=== PATIENT | female | born 1995 | race Caucasian/White ===

== ENCOUNTER 2017-11-23 08:07 | Emergency (ER) | payer OTHER | END 2017-11-23 09:33 | disposition home or self-care (01) | LOC: M ED 08:07 | DX: R42 Dizziness and giddiness (principal); R11.0 Nausea; R51 Headache; T59.891A Toxic effect of other specified gases, fumes and vapors, accidental (unintentional), initial encounter; X58.XXXA Exposure to other specified factors, initial encounter; Y92.098 Other place in other non-institutional residence as the place of occurrence of the external cause; J45.909 Unspecified asthma, uncomplicated; Z88.0 Allergy status to penicillin; Z91.030 Bee allergy status; Z79.3 Long term (current) use of hormonal contraceptives | CPT/HCPCS: 99283 ==

== ENCOUNTER → 2018-12-12 | Outpatient (REF) | payer OTHER ==
[~2018-12-12] MED LIST: PROAAER10 INH; TRIN1TAB2 PO
[2018-12-12 12:24] LABS: HEMATOCRIT 39.9 % (36.0-47.0); HEMOGLOBIN 13.4 g/dl (12.0-15.5); MEAN CORPUSCULAR HEMOGLOBIN 31.4 pg (27.0-33.0); MEAN CORPUSCULAR HGB CONC 33.6 g/dl (32.0-36.5); MEAN CORPUSCULAR VOLUME 93.4 fl (80.0-96.0); PLATELET COUNT, AUTOMATED 239 10^3/uL (150-450); RED BLOOD COUNT 4.27 10^6/uL (4.00-5.40); WHITE BLOOD COUNT 8.6 10^3/uL (4.0-10.0)
[2018-12-12 13:18] LABS: HCG, SERUM QUANTITATIVE 101098 MIU/ML
[2018-12-13 09:25] LABS: RUBELLA IgG QUALITATIVE IMMUNE (IMMUNE)
[2018-12-13 09:56] LABS: HEPATITIS C VIRUS ABY INDEX 0.1 INDEX (<0.8); HIV 1&2 SCREEN CENTAUR NEGATIVE (NEGATIVE)
== END ==
LOC: M LAB REF 11:57
PROVIDERS: ATTEND Nurse Practitioner Women's Health
DX: Z32.01 Encounter for pregnancy test, result positive (principal); O36.80X0 Pregnancy with inconclusive fetal viability, not applicable or unspecified; Z3A.00 Weeks of gestation of pregnancy not specified

== ENCOUNTER 2019-02-02 22:17 | Emergency (ER) | payer OTHER ==
[~2019-02-02] VITALS: Ht 167.6 cm; Wt 53.3 kg
[2019-02-02 22:44] LABS: BASO # 0.1 10^3/uL (0.0-0.2); BASO % 0.6 % (0.0-1.0); EOS # 0.7 10^3/uL (0.0-0.5); EOS % 4.2 % (0.0-3.0); HEMATOCRIT 37.1 % (36.0-47.0); HEMOGLOBIN 12.7 g/dl (12.0-15.5); LYMPH % 18.2 % (24.0-44.0); MEAN CORPUSCULAR HEMOGLOBIN 30.7 pg (27.0-33.0); MEAN CORPUSCULAR HGB CONC 34.2 g/dl (32.0-36.5); MEAN CORPUSCULAR VOLUME 89.6 fl (80.0-96.0); MONO # 1.5 10^3/uL (0.0-0.8); MONO % 8.7 % (0.0-5.0); NEUTROPHILS # 11.3 10^3/uL (1.5-8.5); NEUTROPHILS % 67.5 % (36.0-66.0); PLATELET COUNT, AUTOMATED 253 10^3/uL (150-450); RED BLOOD COUNT 4.14 10^6/uL (4.00-5.40); WHITE BLOOD COUNT 16.7 10^3/uL (4.0-10.0)
[2019-02-02] MEDS ORDERED: ACETAMINOPHEN 325 MG TAB PO ONE (22:45)
[2019-02-02] MEDS ORDERED: ONDANSETRON 4MG/2ML VIAL (J2405) IV ONE (22:45)
[2019-02-02] MEDS ORDERED: NS 1,000 ML IV ONE (22:45)
[2019-02-02 23:13] LABS: ALBUMIN 3.3 GM/DL (3.2-5.2); ALT/SGPT 21 U/L (12-78); BILIRUBIN,DIRECT < 0.1 MG/DL (0.0-0.2); BILIRUBIN,TOTAL 0.2 MG/DL (0.2-1.0); BLOOD UREA NITROGEN 17 MG/DL (7-18); CALCIUM LEVEL 8.6 MG/DL (8.5-10.1); CARBON DIOXIDE LEVEL 24 MEQ/L (21-32); CHLORIDE LEVEL 103 MEQ/L (98-107); CREATININE FOR GFR 0.74 MG/DL (0.55-1.30); GLOMERULAR FILTRATION RATE > 60.0 (>60); GLUCOSE, FASTING 121 MG/DL (70-100); LIPASE 118 U/L (73-393); POTASSIUM SERUM 3.3 MEQ/L (3.5-5.1); SODIUM LEVEL 136 MEQ/L (136-145); TOTAL PROTEIN 7.2 GM/DL (6.4-8.2)
--- NOTE | 2019-02-02 23:27 | REPVR ---
PROCEDURE INFORMATION: Exam: US Abdomen Limited, Right Upper Quadrant Exam date and time: 02/02/2019 11:12 PM Clinical history: 24 years old, female; Abdominal pain; Epigastric; ; Additional info: Abdominal pain, umbilical, tender throughout, 15 wks TECHNIQUE: Imaging protocol: Real-time ultrasound of the abdomen with image documentation. Examination was focused on the right upper quadrant. COMPARISON: US OB 02/02/2019 11:02 PM FINDINGS: Liver: Normal appearing liver. Gallbladder: Normal appearing gallbladder. The gallbladder wall measures less than 2 mm. Common bile duct: Common bile duct measures 4 mm and normal in size. Pancreas: Normal appearing pancreas. Right kidney: Right kidney measures 10 CM in length and there is no evidence of hydronephrosis. Inferior vena cava: Normal-appearing inferior vena cava. IMPRESSION: Normal appearing ultrasound of the right upper quadrant. Electronically signed by: Nasim Cates On 02/02/2019 23:27:43 PM
--- NOTE | 2019-02-02 23:36 | REPVR ---
PROCEDURE INFORMATION: Exam: US First Trimester, Transabdominal Exam date and time: 02/02/2019 11:12 PM Clinical history: 24 years old, female; complicated by abdominal or pelvic pain; Generalized abdominal pain; Second trimester; Gestational age or lmp: 15w 6d; ; Additional info: Abdominal pain, umbilical, tender throughout, 15 wks TECHNIQUE: Imaging protocol: Real-time transabdominal obstetrical ultrasound of the maternal pelvis and a first trimester , less than 14 weeks 0 days, with image documentation. COMPARISON: No relevant prior studies available. FINDINGS: GESTATION: Gestation: Single intrauterine gestation Heart rate: heart rate is 153 beats per minute. Placenta: Anterior placenta without evidence of abruption or previa. Amniotic fluid: Normal amniotic fluid volume. BIOMETRY: Estimated gestational age: Gestational age based on ultrasound and LMP is 15 weeks 5-6 days. Estimated weight: Estimated weight 141 g (54th percentile). Biparietal diameter: BPD 3.3 cm Head circumference: Head circumference 11.8 cm Abdominal circumference: Abdominal circumference 10 cm Femur length: Femur length 2 cm. MATERNAL: Uterus: Unremarkable. Cervix: Unremarkable. Right adnexa: Unremarkable. Left adnexa: Unremarkable. Intraperitoneal: No intraperitoneal free fluid. IMPRESSION: Unremarkable scan at 15 weeks 5-6 days as described above. Detailed structural survey can be performed between 19-20 weeks if clinically desired. Electronically signed by: Jacob Cruz On 02/02/2019 23:35:30 PM
[2019-02-03] MEDS ORDERED: raNITIdine SYRUP 150 MG/10 ML UDC PO STA (00:32)
[2019-02-03] MEDS ORDERED: ZANT150T40 PO (00:57)
[2019-02-03] MEDS ORDERED: ONDA4TAB6 PO (00:57)
[2019-02-03 01:08] VITALS: BP 111/66
== END 2019-02-03 01:14 | disposition home or self-care (01) ==
LOC: M ED 22:17
DX: O99.112 Other diseases of the blood and blood-forming organs and certain disorders involving the immune mechanism complicating pregnancy, second trimester (principal); D72.829 Elevated white blood cell count, unspecified; O21.9 Vomiting of pregnancy, unspecified; O99.512 Diseases of the respiratory system complicating pregnancy, second trimester; J45.909 Unspecified asthma, uncomplicated; Z3A.15 15 weeks gestation of pregnancy; Z88.0 Allergy status to penicillin; Z91.030 Bee allergy status
CPT/HCPCS: 36415; 76705; 76811; 80048; 80076; 81001; 83690; 85025; 96361; 96374; 99284; J2405

== ENCOUNTER → 2019-04-30 | Outpatient (CLI) | payer OTHER ==
[~2019-04-30] MED LIST changes: +ONDA4TAB6 PO; +ZANT150T40 PO
[2019-04-30 17:16] LABS: HEMATOCRIT 36.9 % (36.0-47.0); HEMOGLOBIN 12.1 g/dl (12.0-15.5); MEAN CORPUSCULAR HEMOGLOBIN 31.6 pg (27.0-33.0); MEAN CORPUSCULAR HGB CONC 32.8 g/dl (32.0-36.5); MEAN CORPUSCULAR VOLUME 96.3 fl (80.0-96.0); PLATELET COUNT, AUTOMATED 177 10^3/uL (150-450); RED BLOOD COUNT 3.83 10^6/uL (4.00-5.40); WHITE BLOOD COUNT 9.3 10^3/uL (4.0-10.0)
== END ==
LOC: M LAB 15:29
PROVIDERS: ATTEND Obstetrics & Gynecology
DX: Z34.02 Encounter for supervision of normal first pregnancy, second trimester (principal)

== ENCOUNTER → 2019-06-19 | Outpatient (REF) | payer OTHER | LOC: M LAB REF 17:43 | PROVIDERS: ATTEND Obstetrics & Gynecology | DX: Z34.03 Encounter for supervision of normal first pregnancy, third trimester (principal) ==

== ENCOUNTER 2019-07-28 02:24 | Inpatient (IN) | payer OTHER ==
[~2019-07-28] VITALS: Ht 167.6 cm; Wt 64.7 kg
[2019-07-28] VITALS (47 sets, daily range): BP systolic 93–141; BP diastolic 51–94
[2019-07-28] MEDS ORDERED: LACTATED RINGER'S 1000 ML IV STA (02:56)
[2019-07-28] MEDS ORDERED: LR 1,000 ML IV SCH ×2 (02:56→13:15)
--- NOTE | 2019-07-28 03:18 | HPEPDOC ---
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: No pertinent history Past Medical History Medical History asthma, seasonal allergies Surgical History: Appendectomy, Tonsilectomy Family History Significant Family History: Noncontributory Social History Marital Status: Family situation: Spouse/partner home Psychosocial History: No pertinent psych hx * Smoker: non-smoker Alcohol: Denies Drugs: denies Abuse Violence Screening Have you been hit/kicked/slapp: No Have you been sexually assault: No Imunizations Influenza Status: current Allergies Coded Allergies: bee venom protein (honey bee) (Verified Allergy, Severe, anaphylaxis, 02/02/19) Penicillins (Verified Allergy, Intermediate, rash, 02/02/19) Medications Scheduled Ranitidine Hcl (Zantac) 150 Mg Tablet, 1 TAB PO BID Scheduled PRN Albuterol Sulfate (Proair Hfa) 108 Mcg/Act Aer, 2 PUFF INH Q4-6HP PRN for wheezing Ondansetron (Ondansetron Odt) 4 Mg Tab.rapdis, 1 TAB PO Q6-8HP PRN for nausea/vomiting Physical Examination Physical Examination GENERAL: Alert and oriented times three. BREAST: . ABDOMEN: Gravid and non-tender to touch. FETUS: Is vertex (VTX) by sterile vaginal examination (SVE), fetus is vertex (VTX) by David. HEART RATE: Regular rate and rhythm. LUNGS: Clear to auscultation (CTA). EXTREMITIES: No edema. No clonus. Deep tendon reflexes (DTRs) + 2. Laboratory Data [facility] Laboratory Tests 2 07/28/19 02:55: Serology Scanned Report Hepatitis B Testing Pertinent Laboratoy Data Blood Type: O+ RBC Antibody Screen: Negative HIV: Negative Hepatitis B: Negative Hepatitis C: Negative Rapid Plasma Reagin: Nonreactive Rubella: Immune Chlamydia/Gonorrhea: Negative Group B Streptococcus: Negative Quad Screen Test: Declined Glucose Tolerance Test: 134 Anatomy Ultrasound Ultrasound Date: Mar 06, 2019 Placenta Location: Posterior Normal Anatomy: Yes Placenta Previa: No Estimated Weight (grams): 318 Other Ultrasounds 12/12/18 dating 9w3d, CLAUDIO 07/24/2019 03/23/19 f/u anatomy WNL. Steroid Therapy Steroid Therapy: No Vaginal Examination Dilation: 2cm (-3) Effacement: 80% Station: -1 Cervical Consistency: Soft Cervical Position: Posterior Presentation: Cephalic presentation Assessment Heart Rate (FHR): 145 Variability: Moderate Accelerations: Positive Decelerations: None Tocometer Contractions: Yes Frequency: every 1-5 min. Strength: palpated as mild Assessment/Plan Assessment Rosa Isela is a 24-year-old (G)1 para (P)0-0-0-0 at 40+6 weeks by 9-week ultrasound. Presents to Labor and Delivery (L&D) with complaints of regular painful contractions. Denies LOF, bleeding. Reports good activity. 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 Diet: clear liquids. Group B Streptococcus (GBS) negative. Labs and intravenous (IV) per unit protocol. Counseled on Pitocin and induction of labor (IOL). Lactated Ringers (LR): Bolus 500 mL, then at 125 mL/hr. Considering epidural Anticipate normal spontaneous delivery () C-S as appropriate. Fidelina Weathers CNM July 28, 2019 03:18
[2019-07-28 03:21] LABS: HEMOGLOBIN 13.3 g/dl (12.0-15.5); MEAN CORPUSCULAR HEMOGLOBIN 32.5 pg (27.0-33.0); MEAN CORPUSCULAR VOLUME 92.9 fl (80.0-96.0); PLATELET COUNT, AUTOMATED 183 10^3/uL (150-450); RED BLOOD COUNT 4.09 10^6/uL (4.00-5.40); WHITE BLOOD COUNT 15.6 10^3/uL (4.0-10.0)
[2019-07-28] MEDS ORDERED: FENTANYL 2MCG/ML ROPIVACAINE 0.2% IN 0.9% NACL 100ML IVBAG As Ordered ONE (06:38)
[2019-07-28] MEDS ORDERED: FENTANYL/ROPIVACAINE/NACL BAG 100 ML EPIDURAL SCH (08:30)
[2019-07-28] MEDS ORDERED: EPIDURAL/PCA KEYS XX PRN (08:30)
[2019-07-28] MEDS ORDERED: ONDANSETRON 4MG/2ML VIAL IV PRN ×2 (08:30→12:45)
[2019-07-28] MEDS ORDERED: REFRIGERATOR IV KEYS XX PRN (08:30)
[2019-07-28] MEDS ORDERED: diphenhydrAMINE 50MG/ML VIAL (J1200) IV PRN (08:30)
[2019-07-28] MEDS ORDERED: NALOXONE INJ 0.4MG/1ML VIAL (J2310 PER 1MG) IV PRN (08:30)
[2019-07-28] MEDS ORDERED: EPIDURAL COMMENT XX SCH (08:30)
[2019-07-28] MEDS ORDERED: LACTATED RINGER'S 1000 ML IV PRN (08:30)
[2019-07-28] MEDS ORDERED: ePHEDrine SULFATE 25 MG/5 ML(5MG/ML) SYRINGE IV PRN (08:30)
[2019-07-28] MEDS ORDERED: OXYTOCIN 30 UNITS IN 0.9% NaCl 500ML IV BAG (J2590) As Ordered ONE (09:15)
[2019-07-28] MEDS ORDERED: DIBUCAINE 1% OINTMENT 30GM TOP PRN (12:45)
[2019-07-28] MEDS ORDERED: IBUPROFEN 600 MG TAB PO PRN (12:45)
[2019-07-28] MEDS ORDERED: RHOGAM 300 MCG (1500 IU) INJ (J2790) IM SCH (12:45)
[2019-07-28] MEDS ORDERED: IBUPROFEN 800 MG TAB PO PRN (12:45)
[2019-07-28] MEDS ORDERED: MEASLES,MUMPS,RUBELLA VACCINE INJ (MMR-II) (90707) SC SCH (12:45)
[2019-07-28] MEDS ORDERED: DOCUSATE SODIUM 100 MG CAP PO PRN (12:45)
[2019-07-28] MEDS ORDERED: PROMETHAZINE 25 MG TAB PO PRN (12:45)
[2019-07-28] MEDS ORDERED: ACETAMINOPHEN 500 MG TAB PO PRN (12:45)
[2019-07-28] MEDS ORDERED: ACETAMINOPHEN TAB 650MG DOSE (2X325MG) PO PRN (12:45)
[2019-07-28] MEDS ORDERED: OXYTOCIN DRIP 30 UNITS in IV 1 EA IV SCH (12:50)
[2019-07-29 06:23] VITALS: BP 104/56
[2019-07-29] MEDS: PRENATAL VITAMINS CHEWABLE TABLET PO SCH (09:00)
[2019-07-29 18:04] VITALS: BP 109/56
[2019-07-30 06:00] VITALS: BP 117/71
[2019-07-30] MEDS: PRENATAL VITAMINS CHEWABLE TABLET PO SCH (07:20)
== END 2019-07-30 13:20 | disposition home or self-care (01) | DRG 807 ==
LOC: M LDO 02:24 → M LDI 02:51 → M OBS 15:15
PROVIDERS: ADMIT Advanced Practice Midwife; ATTEND Obstetrics & Gynecology
PROC: 10E0XZZ Delivery of Products of Conception, External Approach (ICD-10-PCS; principal; 2019-07-28)
PROC: 0HQ9XZZ Repair Perineum Skin, External Approach (ICD-10-PCS; 2019-07-28)
DX: O48.0 Post-term pregnancy (principal); Z37.0 Single live birth; Z3A.40 40 weeks gestation of pregnancy; O70.0 First degree perineal laceration during delivery